=== PATIENT | female | born 1980 | race Caucasian/White ===

== ENCOUNTER 2020-08-05 18:56 | Observation (INO) | payer OTHER, BC ==
[~2020-08-05] VITALS: Ht 157.5 cm; Wt 53.1 kg
[2020-08-05 19:08] VITALS: BP 109/65
[2020-08-05 19:22] LABS: URINE BILIRUBIN NEGATIVE (Negative); URINE BLOOD 1+ (Negative); URINE CLARITY CLEAR; URINE COLOR YELLOW; URINE GLUCOSE-RANDOM NEGATIVE (Negative); URINE KETONES 2+ (Negative); URINE LEUKOCYTES-REFLEX NEGATIVE (Negative); URINE NITRITE-REFLEX NEGATIVE (Negative); URINE PROTEIN NEGATIVE (Negative); URINE SPECIFIC GRAVITY 1.025 (1.005-1.030); URINE UROBILINOGEN 0.2 E.U./dl (0.2-1.0)
[2020-08-05 19:27] LABS: ABSOLUTE BASOPHILS 0.1 thou/uL (0.0-0.2); ABSOLUTE LYMPHOCYTES 1.8 thou/uL (0.8-5.3); ABSOLUTE MONOCYTES 1.2 thou/uL (0.0-1.2); ABSOLUTE NEUTROPHILS 8.2 thou/uL (1.6-8.1); BASOPHILS 0.5 %; EOSINOPHILS 0.2 %; HEMATOCRIT 39.4 % (37.0-47.0); HEMOGLOBIN 13.2 gm/dL (12.0-15.0); LYMPHOCYTES 16.1 %; MCH 29.6 pg (26.0-34.0); MCHC 33.5 g/dL (28.0-37.0); MCV 88.4 fL (80.0-100.0); MONOCYTES 10.5 %; MPV 7.2 fl. (7.2-11.1); NUCLEATED RBCS 0 /100WBC; PLATELET COUNT* 288 thou/uL (150-400); POLYS 72.7 %; RBC 4.46 mil/uL (4.20-5.00); RDW-CV 12.9 % (10.5-14.5); WBC 11.2 thou/uL (4.0-11.0)
[2020-08-05 19:34] LABS: CASTS None Seen /LPF (None Seen); CRYSTALS None Seen /LPF (None Seen); MUCUS 4-6 Moderate strn/LPF (None Seen); SQUAMOUS >10 Many /LPF (0-3)
[2020-08-05 19:34] LABS: CALCIUM 9.1 mg/dL (8.5-10.1); CREATININE 0.8 mg/dL (0.6-1.3); POTASSIUM 3.5 mmol/L (3.5-5.1)
[2020-08-05 19:35] LABS: URINE RBC 0-2 Rare /HPF (0-2); URINE WBC-REFLEX 0-5 Rare /HPF (0-5)
[2020-08-05 19:39] LABS: ALBUMIN 3.9 g/dL (3.4-5.0); MAGNESIUM 1.9 mg/dL (1.8-2.4); TOTAL BILIRUBIN 0.6 mg/dL (<0.1-1.0); TOTAL PROTEIN 7.3 g/dL (6.4-8.2)
[2020-08-05 22:55] VITALS: BP 89/71
[2020-08-05 23:00] VITALS: BP 100/64
--- NOTE | 2020-08-06 07:15 | NUR ---
CHANGE OF SHIFT REPORT PATIENT SEEN AT BEDSIDE, IN BED RESTING ASSUMED PATIENT CARE
[2020-08-06 08:00] VITALS: BP 89/52
[2020-08-06] MEDS ORDERED: PREDNISONE 10 M10 MG PO (10:06)
[2020-08-06] MEDS ORDERED: MECLIZINE HCL25 M1 PO (10:06)
[2020-08-06 11:30] VITALS: BP 89/52
--- NOTE | 2020-08-06 12:41 | 2DMMODE ---
[place] [address] 2 D/M-MODE ECHOCARDIOGRAM Name: MILAGROS PUGH Room: [address] MFélix#: [id number] Admission: 08/05/20 Attend Phys: Morris Cabello Discharge: Date of : 80 Date of Service: 08/06/20 1240 Report #: [id number] THIS REPORT FOR: cc: FAM - No family physician/PCP FAM - No family physician/PCP Jose Vargas MD [facility] ~ APPROVED REPORT Study performed: 08/06/2020 10:22:36 EXAM: Comprehensive 2D, Doppler, and color-flow Echocardiogram Patient Location: In-Patient Room #: [facility] BSA: 1.52 HR: 56 bpm BP: 89/52 mmHg Rhythm: NSR Other Information Study Quality: Good Indications CVA/TIA Echo Enhancing Agent Indication: Rule out Shunt Agent(s) / Amount(s) Used: Agitated Saline cc 2D Dimensions IVSd: 7.41 (7-11mm) LVOT Diam: 19.46 (18-24mm) LVDd: 34.16 mm PWd: 8.18 (7-11mm) Ascending Ao: 27.93 (22-36mm) LVDs: 14.92 (25-40mm) Aortic Root: 24.55 mm Volumes Left Atrial Volume (Systole) LA ESV Index: 18.00 mL/m2 Aortic Valve AoV Peak Kal.: 1.36 m/s AO Peak Gr.: 7.36 mmHg LVOT Max P.00 mmHg AO Mean Gr.: 3.82 mmHg LVOT Mean P.23 [place] [address] 2 D/M-MODE ECHOCARDIOGRAM Name: MILAGROS PUGH Room: [address] M.R.#: [id number] Admission: 08/05/20 Attend Phys: Morris Cabello Discharge: Date of : 80 Date of Service: 08/06/20 1240 Report #: [id number] LVOT Max V: 1.12 m/s AO V2 VTI: 28.98 cm LVOT Mean V: 0.68 m/s QASIM (VTI): 2.44 cm2 LVOT V1 VTI: 23.77 cm Mitral Valve E/A Ratio: 1.76 MV Decel. Time: 273.50 ms MV E Max Kal.: 0.80 m/s MV PHT: 79.31 ms MVA (PHT): 2.77 cm2 TDI E/Lateral E': 3.81 E/Medial E': 5.33 Medial E' Kal.: 0.15 m/s Lateral E' Kal.: 0.21 m/s Pulmonary Valve PV Peak Kal.: 1.01 m/s PV Peak Gr.: 4.12 mmHg Left Ventricle The left ventricle is normal size. There is normal LV segmental wall motion. There is normal left ventricular wall thickness. Left ventricular systolic function is normal. The left ventricular ejection fraction is within the normal range. LVEF is 55-60%. The left ventricular diastolic function is normal. Right Ventricle The right ventricle is normal size. The right ventricular systolic function is normal. Atria The left atrium size is normal. no evidence for shunting of microcavitations on bubble study The right atrium size is normal. Aortic Valve The aortic valve is normal in structure. No aortic regurgitation is present. There is no aortic valvular stenosis. Mitral Valve The mitral valve is normal in structure. Trace mitral regurgitation. No evidence of mitral valve stenosis. Tricuspid Valve The tricuspid valve is normal in structure. Trace tricuspid regurgitation. Unable [place] [address] 2 D/M-MODE ECHOCARDIOGRAM Name: MILAGROS PUGH Room: [address]#: [id number] Admission: 08/05/20 Attend Phys: Morris Cabello Discharge: Date of : 80 Date of Service: 08/06/20 1240 Report #: [id number] Pulmonic Valve The pulmonary valve is normal in structure. There is no pulmonic valvular regurgitation. Great Vessels The aortic root is normal in size. IVC is normal in size and collapses >50% with inspiration. Pericardium There is no pericardial effusion. <Conclusion> The left ventricle is normal size. There is normal left ventricular wall thickness. Left ventricular systolic function is normal. The left ventricular ejection fraction is within the normal range. LVEF is 55-60%. The left ventricular diastolic function is normal. The right ventricle is normal size. The left atrium size is normal. The aortic valve is normal in structure. The mitral valve is normal in structure. The tricuspid valve is normal in structure. IVC is normal in size and collapses >50% with inspiration. There is no pericardial effusion. There is normal LV segmental wall motion. no evidence for shunting of microcavitations on bubble study <ELECTRONICALLY SIGNED> By: Jose Vargas MD, FACC 08/06/20 1240 1240 1240 Jose Vargas MD, FACC /INF
[2020-08-06 15:51] VITALS: BP 89/52
--- NOTE | 2020-08-13 13:52 | CON ---
[address] [address] CONSULTATION Name: MILAGROS PUGH Room: [address] Reji Cortez#: [id number] Admission: 08/05/20 Attend Phys: Vanna Phillips Discharge: 08/06/20 Date of : 80 Report #: [id number] THIS REPORT FOR: cc: FAM - No family physician/PCP FAM - No family physician/PCP ~ Royce Atkins MD DATE OF SERVICE: 08/06/2020 HISTORY OF PRESENT ILLNESS: This is a 40-year-old female patient who was evaluated by me for any neurological etiology for the patient's dizziness. She was admitted with dizziness as summarized in the notes from Emergency Room, she was also having nausea and vomiting. She never had this kind of episode before. She was somewhat unstable on her feet. She did have a CT scan of the head in the Emergency Room and that was unremarkable. REVIEW OF SYSTEMS: Negative for this kind of dizziness before. She said she is not on any medications. She is usually healthy. There was some question about low blood pressure in this patient and the blood pressure has been running low like 89/52. A 14-point review of system was otherwise unremarkable. PAST MEDICAL HISTORY: The patient said she did not have any kind of dizziness before. FAMILY HISTORY: Negative for epilepsy, but is positive for vertigo. SOCIAL HISTORY: She does not drink alcohol on a regular basis. She is and I also talked to the . PHYSICAL EXAMINATION: Indicate that she is alert, responsive, able to follow simple and complex command. Cranial nerve examination was unremarkable. Specifically, there was no nystagmus. She has an unremarkable neuromuscular examination on both sides. I did not see any marked abnormality of [id number]. There is no meningeal sign in this patient. I could not look at the fundus. Cardiac respiratory examination is unremarkable. There is no respiratory difficulty. Blood pressure is low at 89/52, respirations 16, pulse is 60, and temperature is 98.3. LABORATORY DATA: Urinalysis showed some ketones and some bacteria. CT scan was unremarkable. IMPRESSION: This patient was evaluated by me earlier today. Note is being dictated now. I had talked to the patient that we will proceed with an MRI. MRI will be to exclude any neurological pathology. If MRI is normal, then the more common cause will be something in the inner ear [place] [address] CONSULTATION Name: MILAGROS PUGH Room: [address] Reji Cortez#: [id number] Admission: 08/05/20 Attend Phys: Vanna Phillips Discharge: 08/06/20 Date of : 80 Report #: [id number] evaluation by an inner stitching machine feeder or offbearer. She wanted to proceed with MRI and MRI was ordered and further recommendation will follow after MRI. Thank you very much for this referral and if you have any question, please feel free to contact me. <ELECTRONICALLY SIGNED> By: Royce Atkins MD 08/13/20 1352 1720 [id number] Atkins MD /nt
== END 2020-08-06 16:30 | disposition home or self-care (01) ==
LOC: M.ERS 18:56 → M.2W 21:32 → M.TBA-ER 21:32 → M.2W 23:07
PROVIDERS: Emergency Medicine; ADMIT Internal Medicine; ATTEND Internal Medicine
DX: R42 Dizziness and giddiness (principal); F17.210 Nicotine dependence, cigarettes, uncomplicated; F12.90 Cannabis use, unspecified, uncomplicated; G43.909 Migraine, unspecified, not intractable, without status migrainosus; R11.2 Nausea with vomiting, unspecified; Z20.828 Contact with and (suspected) exposure to other viral communicable diseases